=== PATIENT | male | born 1990 | race African-American/Black ===

== ENCOUNTER 2021-02-10 01:40 | Emergency (ER) | payer SELFPAY ==
[2021-02-10] MEDS ORDERED: ACETAMINOPHEN 500 MG TAB ONE (02:46)
--- NOTE | 2021-02-10 03:51 | ER ---
Nurse's Notes [facility] Name: Christo Pretty Age: 30 yrs Sex: Male : 1990 Arrival Date: 02/10/2021 Time: 01:43 Bed 3 Private MD: Diagnosis: Chest Wall Pain;Bronchitis Presentation: 02/10 01:59 Chief complaint: Patient states: right sided rib pain that has been there for 3 weeks, em reports mild productive brown cough, sore throat, shortness of breath, denies N/V/D or fever. Coronavirus screen: Client denies travel out of the [place] in the last 14 days. Ebola Screen: Patient negative for fever greater than or equal to 101.5 degrees Fahrenheit, and additional compatible Ebola Virus Disease symptoms Patient denies exposure to infectious person. Patient denies travel to an Ebola-affected area in the 21 days before illness onset. No symptoms or risks identified at this time. Initial Sepsis Screen: Does the patient meet any 2 criteria? No. Patient's initial sepsis screen is negative. Does the patient have a suspected source of infection? No. Patient's initial sepsis screen is negative. Risk Assessment: Do you want to hurt yourself or someone else? Patient reports no desire to harm self or others. Onset of symptoms was February 10, 2021. 01:59 Method Of Arrival: Ambulatory em 01:59 Acuity: RUDDY 3 em Historical: - Allergies: 02:02 No Known Allergies; em - PMHx: 02:02 Asthma; em - PSHx: 02:02 None; em - Immunization history:: Adult Immunizations not up to date. - Social history:: Smoking status: Patient denies any tobacco usage or history of. Patient uses street drugs, marijuana. Screenin:37 Abuse screen: Denies threats or abuse. Denies injuries from another. Nutritional rv screening: No deficits noted. Tuberculosis screening: No symptoms or risk factors identified. Fall Risk None identified. Assessment: 02:36 General: Appears comfortable, Behavior is calm, cooperative. Pain: Complains of pain in rv right lateral anterior chest. Neuro: Level of Consciousness is awake, alert, obeys commands, Oriented to person, place, time, situation. Cardiovascular: Patient's skin is warm and dry. Respiratory: Airway is patent Respiratory effort is even, unlabored, Breath sounds are clear bilaterally. Derm: Skin is intact. Vital Signs: 01:59 BP 137 / 92; Pulse 65; Resp 20; Temp 97.8; Pulse Ox 99% on R/A; Weight 90.72 kg; Height em 6 ft. 3 in. (190.50 cm); Pain 10/10; 01:59 Body Mass Index 25.00 (90.72 kg, 190.50 cm) em ED Course: 01:43 Patient arrived in ED. bp1 02:01 Triage completed. em 02:02 Arm band placed on. em 02:06 Diego Kasper MD is Attending Physician. [facility] 02:06 Francisco Obrien, RN is Primary Nurse. rv 02:37 Patient has correct armband on for positive identification. Pulse ox on. NIBP on. rv 03:01 Chest Pa And Lat (2 Views) XRAY In Process Unspecified. EDMS 03:05 Ribs Right XRAY In Process Unspecified. EDMS 03:56 No provider procedures requiring assistance completed. Patient did not have IV access rv during this emergency room visit. Administered Medications: 02:36 Drug: Tylenol 1000 mg Route: PO; rv 03:57 Follow up: Response: No adverse reaction rv Outcome: 03:50 Discharge ordered by . [facility] 03:56 Discharged to home ambulatory. rv 03:56 Condition: good 03:56 Discharge instructions given to patient, Instructed on discharge instructions, follow up and referral plans. medication usage, Demonstrated understanding of instructions, follow-up care, medications, Prescriptions given X 3. 03:57 Patient left the ED. rv Signatures: Dispatcher [employer] Roque Nunes, HUDSON TREVIÑO Francisco Obrien, RN RN [facility] Diego Kasper MD MD [facility]
--- NOTE | 2021-02-10 03:51 | EDPHYS ---
Physician Documentation [facility] Name: Christo Pretty Age: 30 yrs Sex: Male : 1990 Arrival Date: 02/10/2021 Time: 01:43 Bed 3 Private MD: ED Physician Diego Kasper HPI: 02/10 02:23 This 30 yrs old Black Male presents to ER via Ambulatory with complaints of Side Pain. mh7 02:23 The patient or guardian reports cough, that is intermittent, with productive sputum, mh7 brownish. Onset: The symptoms/episode began/occurred 3 week(s) ago. Severity of symptoms: At their worst the symptoms were moderate, 7 day(s) ago, in the emergency department the symptoms are unchanged. Modifying factors: The symptoms are alleviated by nothing, the symptoms are aggravated by nothing. Associated signs and symptoms: Pertinent positives: right lower rib pain, worse with coughing, Pertinent negatives: chest pain, diarrhea, ear ache, fever, nausea, rhinorrhea, sore throat, vomiting. Historical: - Allergies: 02:02 No Known Allergies; em - PMHx: 02:02 Asthma; em - PSHx: 02:02 None; em - Immunization history:: Adult Immunizations not up to date. - Social history:: Smoking status: Patient denies any tobacco usage or history of. Patient uses street drugs, marijuana. ROS: 02:23 Constitutional: Negative for fever, chills, and weight loss, Eyes: Negative for injury, mh7 pain, redness, and discharge, ENT: Negative for injury, pain, and discharge, Neck: Negative for injury, pain, and swelling. 02:23 Abdomen/GI: Negative for abdominal pain, nausea, vomiting, diarrhea, and constipation, Back: Negative for injury and pain, : Negative for injury, bleeding, discharge, and swelling, MS/Extremity: Negative for injury and deformity, Skin: Negative for injury, rash, and discoloration, Neuro: Negative for headache, weakness, numbness, tingling, and seizure, Psych: Negative for depression, anxiety, suicide ideation, homicidal ideation, and hallucinations, Allergy/Immunology: Negative for hives, rash, and allergies, Endocrine: Negative for neck swelling, polydipsia, polyuria, polyphagia, and marked weight changes, Hematologic/Lymphatic: Negative for swollen nodes, abnormal bleeding, and unusual bruising. 02:23 Cardiovascular: Negative for edema, orthopnea, palpitations, paroxysmal nocturnal dyspnea, acute changes. Exam: 02:27 Constitutional: This is a well developed, well nourished patient who is awake, alert, mh7 and in no acute distress. Head/Face: Normocephalic, atraumatic. Eyes: Pupils equal round and reactive to light, extra-ocular motions intact. Lids and lashes normal. Conjunctiva and sclera are non-icteric and not injected. Cornea within normal limits. Periorbital areas with no swelling, redness, or edema. Neck: Trachea midline, no thyromegaly or masses palpated, and no cervical lymphadenopathy. Supple, full range of motion without nuchal rigidity, or vertebral point tenderness. No Meningismus. 02:27 Cardiovascular: Regular rate and rhythm with a normal S1 and S2. No gallops, murmurs, or rubs. Normal PMI, no JVD. No pulse deficits. Respiratory: Lungs have equal breath sounds bilaterally, clear to auscultation and percussion. No rales, rhonchi or wheezes noted. No increased work of breathing, no retractions or nasal flaring. Abdomen/GI: Soft, non-tender, with normal bowel sounds. No distension or tympany. No guarding or rebound. No evidence of tenderness throughout. Back: No spinal tenderness. No costovertebral tenderness. Full range of motion. Skin: Warm, dry with normal turgor. Normal color with no rashes, no lesions, and no evidence of cellulitis. MS/ Extremity: Pulses equal, no cyanosis. Neurovascular intact. Full, normal range of motion. Neuro: Awake and alert, GCS 15, oriented to person, place, time, and situation. Cranial nerves II-XII grossly intact. Motor strength 5/5 in all extremities. Sensory grossly intact. Cerebellar exam normal. Normal gait. Psych: Awake, alert, with orientation to person, place and time. Behavior, mood, and affect are within normal limits. 02:27 Chest/axilla: Inspection: normal, Palpation: tenderness, that is moderate, of the right lower lateral chest, that totally reproduces the patient's complaints, Axilla: are normal, Lymph nodes: lymphadenopathy is not appreciated. Vital Signs: 01:59 BP 137 / 92; Pulse 65; Resp 20; Temp 97.8; Pulse Ox 99% on R/A; Weight 90.72 kg; Height em 6 ft. 3 in. (190.50 cm); Pain 10/10; 01:59 Body Mass Index 25.00 (90.72 kg, 190.50 cm) em MDM: 03:48 Differential Diagnosis: Obstructed Airway Bronchitis Influenza Upper Respiratory 7 Infection Viral Syndrome Pneumonia. Data reviewed: vital signs, nurses notes, EKG, radiologic studies, plain films. Data interpreted: Pulse oximetry: on room air is 99 %. Interpretation: normal. Counseling: I had a detailed discussion with the patient and/or guardian regarding: the historical points, exam findings, and any diagnostic results supporting the discharge/admit diagnosis, the presence of at least one elevated blood pressure reading (>120/80) during this emergency department visit, radiology results, the need for outpatient follow up. Response to treatment: the patient's symptoms have resolved after treatment, the patient's blood pressure is in an acceptable range, mental status has returned to baseline, the patient no longer shows bradycardia, the patient is not short of breath, the patient is not tachycardic, the patient's pain is gone, the patient's temperature has normalized. 03:50 Patient medically screened. [facility] 02/10 02:22 Order name: Ribs Right XRAY [facility] 02/10 02:22 Order name: Chest Pa And Lat (2 Views) XRAY [facility] 02/10 02:22 Order name: EKG - Nurse/Tech; Complete Time: 02:36 [facility] Administered Medications: 02:36 Drug: Tylenol 1000 mg Route: PO; rv 03:57 Follow up: Response: No adverse reaction rv Disposition: 02/10/21 03:50 Discharged to Home. Impression: Chest Wall Pain, Bronchitis. - Condition is Stable. - Discharge Instructions: Chest Wall Pain, [id number], Acute Bronchitis, [id number]. - Prescriptions for Ibuprofen 800 mg Oral Tablet - take 1 tablet by ORAL route every 8 hours As needed take with food; 15 tablet. Tessalon Perles 100 mg Oral Capsule - take 1 capsule by ORAL route every 8 hours As needed; 15 capsule. Albuterol Sulfate 90 mcg/actuation - inhale 1-2 puff by INHALATION route every 4-6 hours; 1 Inhaler. - Medication Reconciliation Form, Thank You Letter, Antibiotic Education, Prescription Opioid Use form. - Follow up: Private Physician; When: 1 - 2 days; Reason: Worsening of condition, Recheck today's complaints, Continuance of care, Re-evaluation by your physician. - Problem is an ongoing problem. - Symptoms have improved. Signatures: Dispatcher [employer] EDRoque Waterman RN RN em Francisco Obrien RN RN rv Holmes, Maurice, MD MD mh7 Corrections: (The following items were deleted from the chart) 03:57 03:50 02/10/2021 03:50 Discharged to Home. Impression: Chest Wall Pain; Bronchitis. rv Condition is Stable. Forms are Medication Reconciliation Form, Thank You Letter, Antibiotic Education, Prescription Opioid Use. Follow up: Private Physician; When: 1 - 2 days; Reason: Worsening of condition, Recheck today's complaints, Continuance of care, Re-evaluation by your physician. Problem is an ongoing problem. Symptoms have improved. mh7
[2021-02-10 04:01] VITALS: BP 137/92; TEMP 97.8; O2SAT 99
--- NOTE | 2021-02-11 09:53 | RAD REPORT ---
EXAM DESCRIPTION: RAD - Ribs Right - 02/10/2021 3:05 am CLINICAL HISTORY: 30 years, Male, PAIN COMPARISON: None. FINDINGS: Four X-ray views of the right ribs were performed. No prior films are available at this ti ny for comparison. The cardiomediastinal silhouette demonstrate to be unremarkable. Heart is not enlarged. The thoraci c aorta is unremarkable. Costophrenic angles are sharp. Evaluation of the lungs demonstrate no evidence for pneumothorax. The right ribs demonstrate to be in tact with no evidence for significant cortical breakthrough that will suggest fracture. There is no e vidence for pleural effusion and/or abnormal areas of airspace opacity that will suggest lung contusi on. The rest of the visualized portions of the soft tissue and bony structures demonstrate to be unre markable. IMPRESSION: No evidence for pneumothorax. No evidence of right rib fracture seen. Electronically signed by: Liban Rivera MD 02/10/2021 3:12 AM CDT Due to temporary technical issues with the PACS/Fluency reporting system, reports are being signed by the in house radiologist without review as a courtesy to ensure prompt reporting. The interpreting r adiologist is fully responsible for the content of the report.
--- NOTE | 2021-02-11 10:08 | RAD REPORT ---
EXAM DESCRIPTION: Josét Pa And Lat (2 Views)02/10/2021 3:01 am COMPARISON: None. CLINICAL HISTORY: [facility] Productive cough;Rib Pain - Right FINDINGS: PA and lateral views of the chest demonstrate(s) a normal cardiomediastinal silhouette. No pneumothorax or pleural effusion. No consolidation or pulmonary edema. Osseous structures are intact . IMPRESSION: No acute chest process. Electronically signed by: Elder Layton MD 02/10/2021 3:05 AM CDT Due to temporary technical issues with the PACS/Fluency reporting system, reports are being signed by the in house radiologist without review as a courtesy to ensure prompt reporting. The interpreting r adiologist is fully responsible for the content of the report.
== END 2021-02-10 03:57 | disposition home or self-care (01) ==
LOC: ER 01:40
DX: J40 Bronchitis, not specified as acute or chronic (principal)
CPT/HCPCS: 71046; 93005; 99284

== ENCOUNTER 2021-07-15 02:34 | Emergency (ER) | payer SELFPAY ==
[2021-07-15] MEDS ORDERED: ACETAMINOPHEN 500 MG TAB ONE (03:20)
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
[2021-07-15 05:18] VITALS: BP 125/80; TEMP 98.6; O2SAT 98
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
== END 2021-07-15 05:05 | disposition home or self-care (01) ==
LOC: ER 02:34
DX: S16.1XXA Strain of muscle, fascia and tendon at neck level, initial encounter (principal); S30.0XXA Contusion of lower back and pelvis, initial encounter; W18.39XA Other fall on same level, initial encounter; Y93.89 Activity, other specified; J45.909 Unspecified asthma, uncomplicated; F17.210 Nicotine dependence, cigarettes, uncomplicated
CPT/HCPCS: 70450; 72125; 72128; 72131; 99284

== ENCOUNTER 2021-12-11 09:11 | Emergency (ER) | payer SELFPAY ==
--- OUTSIDE RECORDS SUMMARY | 2021-12-11 09:14 | XMS REPORT | Continuity of Care Document ---
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 SPINE WO CONTRAST, CT TRAUMA CERVICAL SPINE WO CONTRASTHISTORY: Polytrauma, critical, head/C-spine injury suspected CT TRAUMAPANEL (ASSAULT WITH LOSS OF CONSCIOUSNESS)COMPARISON: NoneTECHNIQUE: CT imaging of the head, cervical, thoracic, and lumbar spinewas obtained without IV contrast. Coronal and sagittal reformats wereconstructed.FINDINGS: HEAD:Exam is limited by patient's motion. Redundancy identified in the leftparietal extra-axial space (series #2 image 24 is likely artifactual orrelated to dural calcification no overlying scalp swelling or cranialfracture seen.The ventricles and cerebral sulci are normal in caliber and configuration.No hydrocephalus, midline shift, or significant mass effect is detected.The basal cisterns are intact.No acute intracranial hemorrhage or pathological extra-axial fluidcollection is demonstrated. No parenchymal attenuation abnormality isidentified. The diaz-white matter differentiation is preserved.The mastoid air cells and paranasal air sinuses are clear. The calvariumand remaining skull base are unremarkable.CERVICAL SPINE:There is reversal of the normal cervical lordosis. The vertebral bodies arein normal height and alignment. The intervertebral disc spaces arepreserved. The craniocervical junction is intact. The prevertebral softtissues are unremarkable.THORACIC SPINE:The vertebral bodies are in normal height and alignment. The intervertebraldisc spaces are preserved. No facet fracture or dislocation is present.LUMBAR SPINE:The vertebral bodies are in normal height and alignment. The intervertebraldisc spaces are preserved. No facet fracture or dislocation is present.IMPRESSIONNo acute intracranial abnormality.No cervical, thoracic or lumbar fracture or subluxation.Preliminary Report Dictated by Resident: Ney Fermin MD., have reviewed this study and agree with theabove report. CT TRAUMA 2021-02- No acute intracranial Un iversity of THORACIC SPINE 04 abnormality. No cervical, [facility] WO CONTRAST 13:33:31 thoracic or lumbar Branc h fracture or subluxation. Preliminary Report Dictated by Resident: Ney Ye MD., have reviewed this study and agree with theabove report.EXAM: CT TRAUMA HEAD WO CONTRAST, CT TRAUMA THORACIC SPINE WO CONTRAST, CTTRAUMA LUMBAR SPINE WO CONTRAST, CT TRAUMA CERVICAL SPINE WO CONTRAST HISTORY: Polytrauma, critical, head/C-spine injury suspected CT TRAUMAPANEL (ASSAULT WITH LOSS OF CONSCIOUSNESS) COMPARISON: None TECHNIQUE: ?CT imaging of the head, cervical, thoracic, and lumbar spinewas obtained without IV contrast. Coronal and sagittal reformats wereconstructed. FINDINGS: HEAD: Exam is limited by patient's motion. Redundancy identified in the leftparietal extra-axial space (series #2 image 24 is likely artifactual orrelated to dural calcification no overlying scalp swelling or cranialfracture seen. The ventricles and cerebral sulci are normal in caliber and configuration.No hydrocephalus, midline shift, or significant mass effect is detected.The basal cisterns are intact. No acute intracranial hemorrhage or pathological extra-axial fluidcollection is demonstrated. No parenchymal attenuation abnormality isidentified. The diaz-white matter differentiation is preserved. The mastoid air cells and paranasal air sinuses are clear. The calvariumand remaining skull base are unremarkable. CERVICAL SPINE: There is reversal of the normal cervical lordosis. The vertebral bodies arein normal height and alignment. The intervertebral disc spaces arepreserved. The craniocervical junction is intact. The prevertebral softtissues are unremarkable. THORACIC SPINE: The vertebral bodies are in normal height and alignment. The intervertebraldisc spaces are preserved. No facet fracture or dislocation is present. LUMBAR SPINE: The vertebral bodies are in normal height and alignment. The intervertebraldisc spaces are preserved. No facet fracture or dislocation is present. [facility], Radiant Results Inft User - 02/26/2021 8:34 AM CDTEXAM: CT TRAUMA HEAD WO CONTRAST, CT TRAUMA THORACIC SPINE WO CONTRAST, CTTRAUMA LUMBAR SPINE WO CONTRAST, CT TRAUMA CERVICAL SPINE WO CONTRASTHISTORY: Polytrauma, critical, head/C-spine injury suspected CT TRAUMAPANEL (ASSAULT WITH LOSS OF CONSCIOUSNESS)COMPARISON: NoneTECHNIQUE: CT imaging of the head, cervical, thoracic, and lumbar spinewas obtained without IV contrast. Coronal and sagittal reformats wereconstructed.FINDINGS: HEAD:Exam is limited by patient's motion. Redundancy identified in the leftparietal extra-axial space (series #2 image 24 is likely artifactual orrelated to dural calcification no overlying scalp swelling or cranialfracture seen.The ventricles and cerebral sulci are normal in caliber and configuration.No hydrocephalus, midline shift, or significant mass effect is detected.The basal cisterns are intact.No acute intracranial hemorrhage or pathological extra-axial fluidcollection is demonstrated. No parenchymal attenuation abnormality isidentified. The diaz-white matter differentiation is preserved.The mastoid air cells and paranasal air sinuses are clear. The calvariumand remaining skull base are unremarkable.CERVICAL SPINE:There is reversal of the normal cervical lordosis. The vertebral bodies arein normal height and alignment. The intervertebral disc spaces arepreserved. The craniocervical junction is intact. The prevertebral softtissues are unremarkable.THORACIC SPINE:The vertebral bodies are in normal height and alignment. The intervertebraldisc spaces are preserved. No facet fracture or dislocation is present.LUMBAR SPINE:The vertebral bodies are in normal height and alignment. The intervertebraldisc spaces are preserved. No facet fracture or dislocation is present.IMPRESSIONNo acute intracranial abnormality.No cervical, thoracic or lumbar fracture or subluxation.Preliminary Report Dictated by Resident: Ney Fermin MD., have reviewed this study and agree with theabove report. CT TRAUMA 2021-02- No acute intracranial Un iversity of LUMBAR SPINE WO 04 abnormality. No cervical, [facility] CONTRAST 13:33:31 thoracic or lumbar Branch fracture or subluxation. Preliminary Report Dictated by Resident: Ney Ye MD., have reviewed this study and agree with theabove report.EXAM: CT TRAUMA HEAD WO CONTRAST, CT TRAUMA THORACIC SPINE WO CONTRAST, CTTRAUMA LUMBAR SPINE WO CONTRAST, CT TRAUMA CERVICAL SPINE WO CONTRAST HISTORY: Polytrauma, critical, head/C-spine injury suspected CT TRAUMAPANEL (ASSAULT WITH LOSS OF CONSCIOUSNESS) COMPARISON: None TECHNIQUE: ?CT imaging of the head, cervical, thoracic, and lumbar spinewas obtained without IV contrast. Coronal and sagittal reformats wereconstructed. FINDINGS: HEAD: Exam is limited by patient's motion. Redundancy identified in the leftparietal extra-axial space (series #2 image 24 is likely artifactual orrelated to dural calcification no overlying scalp swelling or cranialfracture seen. The ventricles and cerebral sulci are normal in caliber and configuration.No hydrocephalus, midline shift, or significant mass effect is detected.The basal cisterns are intact. No acute intracranial hemorrhage or pathological extra-axial fluidcollection is demonstrated. No parenchymal attenuation abnormality isidentified. The diaz-white matter differentiation is preserved. The mastoid air cells and paranasal air sinuses are clear. The calvariumand remaining skull base are unremarkable. CERVICAL SPINE: There is reversal of the normal cervical lordosis. The vertebral bodies arein normal height and alignment. The intervertebral disc spaces arepreserved. The craniocervical junction is intact. The prevertebral softtissues are unremarkable. THORACIC SPINE: The vertebral bodies are in normal height and alignment. The intervertebraldisc spaces are preserved. No facet fracture or dislocation is present. LUMBAR SPINE: The vertebral bodies are in normal height and alignment. The intervertebraldisc spaces are preserved. No facet fracture or dislocation is present. [facility], Radiant Results Inft User - 02/26/2021 8:34 AM CDTEXAM: CT TRAUMA HEAD WO CONTRAST, CT TRAUMA THORACIC SPINE WO CONTRAST, CTTRAUMA LUMBAR SPINE WO CONTRAST, CT TRAUMA CERVICAL SPINE WO CONTRASTHISTORY: Polytrauma, critical, head/C-spine injury suspected CT TRAUMAPANEL (ASSAULT WITH LOSS OF CONSCIOUSNESS)COMPARISON: NoneTECHNIQUE: CT imaging of the head, cervical, thoracic, and lumbar spinewas obtained without IV contrast. Coronal and sagittal reformats wereconstructed.FINDINGS: HEAD:Exam is limited by patient's motion. Redundancy identified in the leftparietal extra-axial space (series #2 image 24 is likely artifactual orrelated to dural calcification no overlying scalp swelling or cranialfracture seen.The ventricles and cerebral sulci are normal in caliber and configuration.No hydrocephalus, midline shift, or significant mass effect is detected.The basal cisterns are intact.No acute intracranial hemorrhage or pathological extra-axial fluidcollection is demonstrated. No parenchymal attenuation abnormality isidentified. The diaz-white matter differentiation is preserved.The mastoid air cells and paranasal air sinuses are clear. The calvariumand remaining skull base are unremarkable.CERVICAL SPINE:There is reversal of the normal cervical lordosis. The vertebral bodies arein normal height and alignment. The intervertebral disc spaces arepreserved. The craniocervical junction is intact. The prevertebral softtissues are unremarkable.THORACIC SPINE:The vertebral bodies are in normal height and alignment. The intervertebraldisc spaces are preserved. No facet fracture or dislocation is present.LUMBAR SPINE:The vertebral bodies are in normal height and alignment. The intervertebraldisc spaces are preserved. No facet fracture or dislocation is present.IMPRESSIONNo acute intracranial abnormality.No cervical, thoracic or lumbar fracture or subluxation.Preliminary Report Dictated by Resident: Ney Fermin MD., have reviewed this study and agree with theabove report. Type and Screen - ONCE STAT 2021-02-26 09:36:12 Test Item Value Reference Range Interpretation Comme nts ABO & RH (test code = 20) A Positive Pe rformed at [facility] [address] [address]Toll Free: [phone] A No. [id number] IAT (test code = 1185) Negative Perfo rmed at [facility] Blood [address] [address]Toll Free: [phone] A No. [id number] [facility] [id number] 09:28:39 Test Item Value Reference Range Interpretation Comments ABO & RH (test code A Positive Performe d at [facility] = 20) Laboratory [facility] [address] [address]Toll Free: [phone] A No. [id number] [facility] METABOLIC PANEL (35510)2021-02-26 09:28:36 Test Item Value Reference Range Interpretation Comments NA (test code = 139 mmol/L 135-145 4124300535) K (test code = 3.5 mmol/L 3.5-5.0 3752382819) CL (test code = 104 mmol/L 98-108 5885504069) CO2 TOTAL (test code 27 mmol/L 23-31 = 5784818588) AGAP (test code = 2-16 9601605967) BUN (test code = 17 mg/dL 7-23 4546521415) GLUCOSE (test code = 109 mg/dL 70-110 4569928244) CREATININE (test code 0.69 mg/dL 0.60-1.25 = 8943538995) TOTAL BILI (test code 0.5 mg/dL 0.1-1.1 = 9838161488) CALCIUM (test code = 9.4 mg/dL 8.6-10.6 5324160472) T PROTEIN (test code 7.7 g/dL 6.3-8.2 = 1991097937) ALBUMIN (test code = 4.6 g/dL 3.5-5.0 1885830657) ALK PHOS (test code = 57 U/L 34-122 2828231981) ALTv (test code = 16 U/L 5-50 1742-6) AST(SGOT) (test code 29 U/L 13-40 = 7391577733) eGFR (test code = mL/min/1.73m2 2550107428) SCOTTIE (test code = SCOTTIE) Association of Glomerular Filtration Rate (GFR) and Staging of Kidney Disease* + + +- +| GFR (mL/min/1.73 m2) ?| With Kidney Damage ?| ?Without Kidney Damage+ ------+ ----+ ------+| ?>90 ?| ?Stage one ?| ? Normal ?+ -+ + -+| ?60-89 ?| ?Stage two ?| ? Decreased GFR ? + + +- +| ?30-59 ?| ?Stage three ?| ? Stage three ? + + +- +| ?15-29 ?| ?Stage four ? | ? Stage four ?+ -+ + -+| ?<15 (or dialysis) ? ?| ?Stage five ? | ? Stage five ?+ -+ + -+ *Each stage assumes the associated GFR level has been in effect for at least three months. ?Stages 1 to 5, with or without kidney disease, indicate chronic kidney disease. Notes: Determination of stages one and two (with eGFR >59mL/min/1.73 m2) requires estimation of kidney damage for at least three months as defined by structural or functional abnormalities of the kidney, manifested by either:Pathological abnormalities or Markers of kidney damage (including abnormalities in the composition of the blood or urine or abnormalities in imaging tests). [facility] Test Item Value Reference Range Interpretation Comments LIPASE (test code = 3683517997) 53 U/L 0-220 Lab Interpretation (test code = Normal 16610-0) [facility] (ID NOW RAPID TESTING)2021-02-26 09:18:35 Test Item Value Reference Range Interpretation Comments SARS-CoV-2 Rapid ID NOW Not Detected Not Detected (test code = 39204-2) SCOTTIE (test code = SCOTTIE) ID NOW COVID-19 Assay is an isothermal nucleic acid amplification test intended for the qualitative detection of nucleic acid from SARS-CoV-2 viral RNA in nasopharyngeal (WILDLIFE MANAGER) specimens. It is used under Emergency Use Authorization (EUA) by FDA. The limit of detection (LOD) of the assay is 125 Genome Equivalents/mL. A positive result is indicative of the presence of SARS-CoV-2 RNA. ?Clinical correlation with patient history and other diagnostic information is necessary to determine patient infection status. A negative (Not Detected) result does not preclude SARS-CoV-2 infection. In patients with clinical symptoms and other tests that are consistent with SARS-CoV-2 infection, negative results should be treated as presumptive negative and a new specimen should be tested with alternative PCR molecular test. Invalid: Please collect a new specimen for repeat patient testing if clinically indicated. Lab Interpretation Normal (test code = 11328-9) [facility] WITH [id number] 09:02:32 Test Item Value Reference Range Interpretation Comments WBC (test code = See_Comment [Automated 7696-2) message] The sy stem which generated this result transmitted reference range : 4.20 - 10.70 10*3/?L. The reference range was not used to interpret this result as normal/abnormal . RBC (test code = See_Comment [Automated 697-8) message] The sy stem which generated this result transmitted reference range : 4.26 - 5.52 10*6/?L. The reference range was not used to interpret this result as normal/abnormal . HGB (test code = 14.1 g/dL 12.2-16.4 718-7) HCT (test code = 43.0 % 38.4-49.3 4544-3) MCV (test code = 95.1 fL 81.7-95.6 787-2) MCH (test code = 31.2 pg 26.1-32.7 785-6) MCHC (test code = 32.8 g/dL 31.2-35.0 786-4) RDW-SD (test code = 39.7 fL 38.5-51.6 01783-4) RDW-CV (test code = 11.4 % 12.1-15.4 L 788-0) PLT (test code = See_Comment [Automated 777-3) message] The sy stem which generated this result transmitted reference range : 150 - 328 10*3/ ?L. The reference r bryce was not used to interpret this result as normal/abnormal . MPV (test code = 9.3 fL 9.8-13.0 L 17812-9) NRBC/100 WBC (test See_Comment [Automat ed code = 6327762902) message] The system which generated this result transmitted reference range : 0.0 - 10.0 /100 WBCs. The refer ence range was not u sed to interpret th is result as normal/abnormal . NRBC x10^3 (test code <0.01 See_Comment [Auto mated = 6361956573) message] The s ystem which generated this result transmitted reference range : 10*3/?L. The reference range was not used to interpret this result as normal/abnormal . GRAN MAT (NEUT) % 60.7 % (test code = 770-8) IMM GRAN % (test code 0.20 % = 6620180124) LYMPH % (test code = 28.5 % 736-9) MONO % (test code = 8.5 % 5905-5) EOS % (test code = 1.8 % 713-8) BASO % (test code = 0.3 % 706-2) GRAN MAT x10^3(ANC) 3.71 10*3/uL 1.99-6.95 (test code = 7704228451) IMM GRAN x10^3 (test <0.03 0.00-0.06 code = 0020146806) LYMPH x10^3 (test code 1.74 10*3/uL 1.09-3.23 = 731-0) MONO x10^3 (test code 0.52 10*3/uL 0.36-1.02 = 742-7) EOS x10^3 (test code = 0.11 10*3/uL 0.06-0.53 711-2) BASO x10^3 (test code <0.03 0.01-0.09 = 704-7) Lab Interpretation Abnormal (test code = 26970-0) [facility]"
[2021-12-11] MEDS ORDERED: ONDANSETRON 4 MG/2 ML VIAL ONE (09:21)
[2021-12-11] MEDS ORDERED: NA CHLORIDE 0.9% 1,000 ML ONE (09:22)
[2021-12-11] MEDS ORDERED: FAMOTIDINE 20 MG/2 ML VIAL IV ONE (09:22)
[2021-12-11] MEDS ORDERED: KETOROLAC 30 MG/ML INJ ONE (09:22)
[2021-12-11 09:41] LABS: Absolute Lymphocytes (CBC) 1.3 K/uL (0.7-4.9); Hematocrit 44.8 % (39.6-49.0); Lymphocytes % 29.4 % (15.3-44.8); MPV 7.5 fL (7.6-11.3); RBC Red Blood Cell Count 4.63 M/uL (4.33-5.43)
[2021-12-11 10:00] LABS: ALT/SGPT 18 U/L (12-78); AST/SGOT 11 U/L (15-37); Albumin 3.9 g/dL (3.4-5.0); Alkaline Phosphatase 51 U/L (45-117); BUN Blood Urea Nitrogen 18 mg/dL (7-18); Bicarbonate 30 mmol/L (21-32); Bilirubin Direct < 0.1 mg/dL (0-0.2); Bilirubin Total 0.4 mg/dL (0.2-1.0); Glucose Level 97 mg/dL (74-106); Magnesium 1.9 mg/dL (1.8-2.4); NT PRO-BNP 8 pg/mL (<125); Potassium 3.8 mmol/L (3.5-5.1); Sodium Level 138 mmol/L (136-145)
[2021-12-11 10:03] LABS: Protime INR 1.06
--- NOTE | 2021-12-11 11:02 | RAD REPORT ---
EXAM DESCRIPTION: Alessia Single View12/11/2021 10:00 am CLINICAL HISTORY: Chest pain COMPARISON: 2020 FINDINGS: The lungs appear clear of acute infiltrate. The heart is normal size IMPRESSION: No acute abnormalities displayed
[2021-12-11 11:51] LABS: Urine Blood Negative (Negative); Urine Glucose Negative (Negative); Urine Protein Negative (Negative); Urine Specific Gravity >=1.030 (1.005-1.030); Urine pH 6.5 (5.0-7.0)
--- NOTE | 2021-12-11 12:07 | ER ---
Nurse's Notes [facility] Name: Christo Pretty Age: 31 yrs Sex: Male : 1990 Arrival Date: 12/11/2021 Time: 09:12 Bed 16 Private MD: Diagnosis: Chest pain, unspecified;Nausea with vomiting, unspecified Presentation: 12/11 09:12 Chief complaint: Patient states: CP and N/V for 1 day. No fever. Coronavirus screen: ll1 Client denies travel out of the [place] in the last 14 days. At this time, the client does not indicate any symptoms associated with coronavirus-19. Ebola Screen: Patient denies travel to an Ebola-affected area in the 21 days before illness onset. Initial Sepsis Screen: Does the patient meet any 2 criteria? No. Patient's initial sepsis screen is negative. Does the patient have a suspected source of infection? No. Patient's initial sepsis screen is negative. Risk Assessment: Do you want to hurt yourself or someone else? Patient reports no desire to harm self or others. Onset of symptoms was December 11, 2021. 09:12 Method Of Arrival: EMS ll1 09:12 Acuity: RUDDY 3 ll1 09:14 Chief complaint: EMS states: VSS, fingerstick 90, aspirin 324mg PO given en route. 18 G ll1 L AC. Triage Assessment: 09:14 General: Appears uncomfortable, Behavior is calm, cooperative, appropriate for age. ll1 Pain: Complains of pain in chest Quality of pain is described as burning, aching. Cardiovascular: Reports chest pain. GI: Abdomen is flat, Reports nausea, vomiting. Historical: - Allergies: 09:13 No Known Drug Allergies; ll1 - PMHx: 09:13 Asthma; ll1 - PSHx: 09:13 None; ll1 - Immunization history:: Client reports having NOT received the Covid vaccine. - Social history:: Smoking status: Patient denies any tobacco usage or history of. Patient uses street drugs, marijuana. Screenin:14 Abuse screen: Denies threats or abuse. Nutritional screening: No deficits noted. ll1 Tuberculosis screening: No symptoms or risk factors identified. Fall Risk IV access (20 points). Total Villafana Fall Scale indicates No Risk (0-24 pts). Assessment: 10:15 Reassessment: No changes from previously documented assessment. Patient and/or family ll1 updated on plan of care and expected duration. Pain level reassessed. Patient is alert, oriented x 3, equal unlabored respirations, skin warm/dry/pink. Patient states feeling better. 11:15 Reassessment: No changes from previously documented assessment. Patient and/or family ll1 updated on plan of care and expected duration. Pain level reassessed. Patient is alert, oriented x 3, equal unlabored respirations, skin warm/dry/pink. Patient states symptoms have improved. Pain: Denies pain. Pain does not radiate. Pain began 1 day ago. 12:12 Reassessment: No changes from previously documented assessment. Patient and/or family ll1 updated on plan of care and expected duration. Pain level reassessed. Patient is alert, oriented x 3, equal unlabored respirations, skin warm/dry/pink. Patient states feeling better. Vital Signs: 09:33 BP 133 / 94; Pulse 65; Resp 17; Temp 98.2; Pulse Ox 95% on R/A; Weight 95.25 kg; Height ll1 6 ft. 3 in. (190.50 cm); Pain 6/10; 10:25 BP 130 / 94; Pulse 60; Resp 16; Pulse Ox 96% ; ll1 11:55 BP 132 / 91; Pulse 60; Resp 15; Pulse Ox 100% ; Pain 0/10; ll1 09:33 Body Mass Index 26.25 (95.25 kg, 190.50 cm) ll1 ED Course: 09:12 Patient arrived in ED. ll1 09:13 Triage completed. ll1 09:13 Arm band placed on Patient placed in an exam room, on a stretcher. ll1 09:14 Ruddy Hood PA is PHCP. cp 09:14 Morgan Downs MD is Attending Physician. cp 09:14 Kaye Mckenzie RN is Primary Nurse. ll1 09:14 Patient has correct armband on for positive identification. Bed in low position. Call ll1 light in reach. Side rails up X2. laboratory monitor on. Pulse ox on. NIBP on. 09:14 No provider procedures requiring assistance completed. Maintain EMS IV. Dressing ll1 intact. Good blood return noted. Site clean \T\ dry. Gauge \T\ site: 18 G L AC. Patient maintains SpO2 saturation greater than 95% on room air. 09:30 First set of blood cultures drawn by me. kv1 09:35 Basic Metabolic Panel Sent. kv1 09:35 CBC with Automated Diff Sent. kv1 09:35 Liver (Hepatic) Function Sent. kv1 09:36 EKG done, by optical lab technician. kv1 10:00 XRAY Chest (1 view) In Process Unspecified. EDMS 12:12 IV discontinued, intact, bleeding controlled, No redness/swelling at site. Pressure ll1 dressing applied. Administered Medications: 09:32 Drug: Pepcid (famotidine) 20 mg Route: IVP; Site: left antecubital; ll1 10:25 Follow up: Response: No adverse reaction ll1 09:32 Drug: Ketorolac 30 mg Route: IVP; Site: left antecubital; ll1 10:25 Follow up: Response: No adverse reaction ll1 09:32 Drug: NS 0.9% 1000 ml Route: IV; Rate: 1000 ml/hr; Site: left antecubital; ll1 11:52 Follow up: Response: No adverse reaction; IV Status: Completed infusion; IV Intake: ll1 1000ml 09:33 Drug: Zofran (Ondansetron) 4 mg Route: IVP; Site: left antecubital; ll1 10:24 Follow up: Response: No adverse reaction ll1 Intake: 11:52 IV: 1000ml; Total: 1000ml. ll1 Outcome: 12:07 Discharge ordered by . cp 12:12 Discharged to home ambulatory. ll1 12:12 Condition: stable 12:12 Discharge instructions given to patient, police, Instructed on discharge instructions, follow up and referral plans. medication usage, Demonstrated understanding of instructions, follow-up care, medications, Prescriptions given X 2. 12:13 Patient left the ED. ll1 Signatures: Dispatcher [employer] EDMS Ruddy Hood PA PA cp Lewis, Lynsay, RN RN ll1 Enzo Erazo kv1
--- NOTE | 2021-12-11 12:07 | EDPHYS ---
Physician Documentation [facility] Name: Christo Pretty Age: 31 yrs Sex: Male : 1990 Arrival Date: 12/11/2021 Time: 09:12 Bed 16 Private MD: ED Physician Morgan Downs HPI: 12/11 09:20 This 31 yrs old Black Male presents to ER via EMS with complaints of Chest Pain. cp 09:20 The patient or guardian reports chest pain that is located primarily in the substernal cp area. 09:20 The pain does not radiate. Associated signs and symptoms: Pertinent positives: nausea, cp 1 episode of vomiting. 09:20 The chest pain is described as aching, burning. cp 09:20 Duration: The patient or guardian reports a single episode, that is still ongoing. cp Patient reports chest pain started after vomiting this morning. Patient admits to use of marijuana and denies use of any other illegal drugs. Historical: - Allergies: 09:13 No Known Drug Allergies; ll1 - PMHx: 09:13 Asthma; ll1 - PSHx: 09:13 None; ll1 - Immunization history:: Client reports having NOT received the Covid vaccine. - Social history:: Smoking status: Patient denies any tobacco usage or history of. Patient uses street drugs, marijuana. ROS: 09:25 Cardiovascular: Positive for chest pain. cp 09:25 Constitutional: Negative for fever. cp 09:25 Abdomen/GI: Positive for vomiting, Negative for abdominal pain. 09:25 Respiratory: Negative for cough, shortness of breath, wheezing. cp 09:25 Eyes: Negative for injury, pain, redness, and discharge. cp 09:25 Neck: Negative for pain with movement, pain at rest, stiffness. 09:25 Back: Negative for pain at rest, pain with movement. 09:25 Neuro: Negative for altered mental status, dizziness, headache, syncope, weakness. 09:25 All other systems are negative. Exam: 09:25 ECG was reviewed by the Attending Physician. cp 09:30 Constitutional: The patient appears in no acute distress, alert, awake, cp non-diaphoretic, non-toxic, well developed, well nourished, uncomfortable. 09:30 Head/Face: Normocephalic, atraumatic. cp 09:30 Eyes: Periorbital structures: appear normal, Conjunctiva: normal, no exudate, no injection, Sclera: no appreciated abnormality, Lids and lashes: appear normal, bilaterally. 09:30 ENT: External ear(s): are unremarkable, Nose: is normal, Mouth: Lips: moist, Oral mucosa: moist, Posterior pharynx: Airway: no evidence of obstruction, patent. 09:30 Neck: ROM/movement: is normal, is supple, without pain, no range of motions limitations. 09:30 Chest/axilla: Inspection: normal. 09:30 Cardiovascular: Rate: normal, Rhythm: regular, Heart sounds: murmur, not appreciated, Edema: is not appreciated, JVD: is not appreciated. 09:30 Respiratory: the patient does not display signs of respiratory distress, Respirations: normal, no use of accessory muscles, no retractions, labored breathing, is not present, Breath sounds: are clear throughout, no decreased breath sounds, no stridor, no wheezing. 09:30 Abdomen/GI: Inspection: abdomen appears normal, Palpation: abdomen is soft and non-tender, in all quadrants. 09:30 Back: pain, is absent, ROM is normal. 09:30 Neuro: Orientation: to person, place \T\ time. Mentation: is normal, Motor: moves all fours, strength is normal, Sensation: is normal. Vital Signs: 09:33 BP 133 / 94; Pulse 65; Resp 17; Temp 98.2; Pulse Ox 95% on R/A; Weight 95.25 kg; Height ll1 6 ft. 3 in. (190.50 cm); Pain 6/10; 10:25 BP 130 / 94; Pulse 60; Resp 16; Pulse Ox 96% ; ll1 11:55 BP 132 / 91; Pulse 60; Resp 15; Pulse Ox 100% ; Pain 0/10; ll1 09:33 Body Mass Index 26.25 (95.25 kg, 190.50 cm) ll1 MDM: 09:15 Patient medically screened. cp 10:00 Differential diagnosis: abnormal EKG, acute myocardial infarction, acute pericarditis, cp cholecystitis, Cholelithiasis costochondritis, esophagitis, gastritis, pericarditis, pleurisy, pneumonia, pneumothorax. 12:06 Data reviewed: vital signs, nurses notes, lab test result(s), EKG, radiologic studies, cp plain films. 12:06 Test interpretation: by ED physician or midlevel provider: ECG, plain radiologic cp studies. Counseling: I had a detailed discussion with the patient and/or guardian regarding: the historical points, exam findings, and any diagnostic results supporting the discharge/admit diagnosis, lab results, radiology results, to return to the emergency department if symptoms worsen or persist or if there are any questions or concerns that arise at home. Special discussion: Based on the patient's history, exam, and Dx evaluation, there is no indication for emergent intervention or inpatient Tx. It is understood by the patient/guardian that if the Sx's persist or worsen they need to return immediately for re-evaluation. ED course: VSS. Patient reports chest pain markedly improved and requests discharge. 12/11 09:15 Order name: Basic Metabolic Panel 12/11 09:15 Order name: CBC with Diff 12/11 09:15 Order name: LFT's 12/11 09:15 Order name: Magnesium; Complete Time: 11:17 cp 12/11 09:15 Order name: NT PRO-BNP; Complete Time: 11:17 cp 12/11 09:15 Order name: PT-INR; Complete Time: 11:17 cp 12/11 09:15 Order name: Troponin HS; Complete Time: 11:17 cp 12/11 11:17 Interpretation: Troponin HS 7.40; Reviewed. 12/11 09:15 Order name: XRAY Chest (1 view); Complete Time: 11:17 cp 12/11 09:15 Order name: UDS 12/11 09:15 Order name: Basic Metabolic Panel; Complete Time: 11:17 EDMS 12/11 11:18 Interpretation: Reviewed. 12/11 09:15 Order name: CBC with Automated Diff; Complete Time: 11:17 EDMS 12/11 11:17 Interpretation: Normal except: MPV 7.5. cp 12/11 09:15 Order name: Liver (Hepatic) Function; Complete Time: 11:17 EDMS 12/11 11:17 Interpretation: Normal except: AST 11; GLOB 4.1; A/G 1.0. 12/11 11:51 Order name: Urine Dipstick-Ancillary; Complete Time: 11:53 EDVT 12/11 11:53 Interpretation: Normal except: UKET 1+. cp 12/11 09:15 Order name: EKG; Complete Time: :16 cp 12/11 09:15 Order name: Cardiac monitoring; Complete Time: :15 cp 12/11 09:15 Order name: EKG - Nurse/Tech; Complete Time: 09:15 cp 12/11 09:15 Order name: IV Saline Lock; Complete Time: 09:15 cp 12/11 09:15 Order name: Labs collected and sent; Complete Time: :15 cp 12/11 09:15 Order name: O2 Per Protocol; Complete Time: :15 cp 12/11 09:15 Order name: O2 Sat Monitoring; Complete Time: :15 cp EC:25 Rate is 66 beats/min. Rhythm is regular. PA interval is normal. QRS interval is normal. cp QT interval is normal. T waves are Inverted in lead aVR. Interpreted by me. Reviewed by me. Administered Medications: 09:32 Drug: Pepcid (famotidine) 20 mg Route: IVP; Site: left antecubital; ll1 10:25 Follow up: Response: No adverse reaction ll1 09:32 Drug: Ketorolac 30 mg Route: IVP; Site: left antecubital; ll1 10:25 Follow up: Response: No adverse reaction ll1 09:32 Drug: NS 0.9% 1000 ml Route: IV; Rate: 1000 ml/hr; Site: left antecubital; ll1 11:52 Follow up: Response: No adverse reaction; IV Status: Completed infusion; IV Intake: ll1 1000ml 09:33 Drug: Zofran (Ondansetron) 4 mg Route: IVP; Site: left antecubital; ll1 10:24 Follow up: Response: No adverse reaction ll1 Disposition: 12:28 Co-signature as Attending Physician, Morgan Downs MD I agree with the assessment and kdr plan of care. Disposition Summary: 12/11/21 12:07 Discharge Ordered Location: Home cp Problem: new cp Symptoms: have improved cp Condition: Stable cp Diagnosis - Chest pain, unspecified cp - Nausea with vomiting, unspecified cp Followup: cp - With: Private Physician - When: 2 - 3 days - Reason: Recheck today's complaints Discharge Instructions: - Discharge Summary Sheet cp - Nonspecific Chest Pain, Adult cp - Aspirin and Your Heart cp - Nausea and Vomiting, Adult cp Forms: - Medication Reconciliation Form cp - Thank You Letter cp - Antibiotic Education cp - Prescription Opioid Use cp Prescriptions: - Ibuprofen 800 mg Oral Tablet - take 1 tablet by ORAL route every 8 hours As needed take with food; 30 tablet; cp Refills: 0, Product Selection Permitted - Zofran 4 mg Oral Tablet - take 1 tablet by ORAL route every 12 hours As needed; 20 tablet; Refills: 0, cp Product Selection Permitted Signatures: Dispatcher [employer] EDMS Morgan Downs MD MD kdr Page, Corey, PA PA cp Kaye Mckenzie RN RN ll1
[2021-12-11 12:17] LABS: Barbiturates NEGATIVE (NEGATIVE); Benzodiazepines NEGATIVE (NEGATIVE); Cocaine NEGATIVE (NEGATIVE); METHAMPHETAM NEGATIVE (NEGATIVE); Methadone NEGATIVE (NEGATIVE); Opiates NEGATIVE (NEGATIVE); Phencyclidine NEGATIVE (NEGATIVE); THC Cannibis POSITIVE (NEGATIVE)
[2021-12-11 12:19] VITALS: TEMP 98.2
[2021-12-11 12:21] VITALS: BP 132/91; O2SAT 100
== END 2021-12-11 12:13 | disposition home or self-care (01) ==
LOC: ER 09:11
DX: R07.9 Chest pain, unspecified (principal); R11.2 Nausea with vomiting, unspecified
CPT/HCPCS: 36415; 71045; 80048; 80076; 80307; 81003; 83735; 83880; 84484; 85025; 85610; 93005; 96361; 96374; 96375; 99285; J2405; J7030

== ENCOUNTER 2023-03-21 06:27 | Emergency (ER) | payer SELFPAY ==
[2023-03-21 07:26] LABS: Absolute Lymphocytes (CBC) 1.6 K/uL (0.7-4.9); Hematocrit 41.1 % (39.6-49.0); Lymphocytes % 42.2 % (15.3-44.8); MCV 95.6 fL (80-100); MPV 7.3 fL (7.6-11.3); RBC Red Blood Cell Count 4.29 M/uL (4.33-5.43)
[2023-03-21] MEDS ORDERED: ASPIRIN 81 MG CHEWABLE TABLET ONE (07:35)
[2023-03-21] MEDS ORDERED: NA CHLORIDE 0.9% 1,000 ML ONE (07:35)
[2023-03-21 07:46] LABS: Potassium 3.6 mEq/L (3.5-5.1); Troponin High Sensitivity 5.6 pg/mL (<58.9)
[2023-03-21] MEDS ORDERED: KETOROLAC 30 MG/ML INJ ONE (07:56)
[2023-03-21] MEDS ORDERED: FAMOTIDINE 20 MG/2 ML VIAL IV ONE (08:00)
--- NOTE | 2023-03-21 09:22 | RAD REPORT ---
EXAM DESCRIPTION: CT - Chest For Pe Angio - 03/21/2023 8:38 am CLINICAL HISTORY: CHEST PAIN COMPARISON: No comparisons TECHNIQUE: Thin axial CT images of the chest were obtained following administration of 95 mL Isovue 370 IV contrast. Multiplanar reconstructions, and maximum intensity projection reconstructions were g enerated and reviewed. Exam utilizes a protocol for optimal evaluation of pulmonary arterial tree. All CT scans are performed using dose optimization technique as appropriate and may include automated exposure control or mA/KV adjustment according to patient size. FINDINGS: Pulmonary arteries are normal. No emboli or other suspicious finding. No acute or signific ant aorta findings. No mass or infiltrate in the lung parenchyma. No pleural thickening or pleural effusion. No pneumotho rax. No abnormal mediastinal or hilar masses or lymphadenopathy seen. No chest wall mass or abnormal axill iary lymphadenopathy. IMPRESSION: No evidence of acute central pulmonary emboli. Negative CT scan of the chest for other significant findings.
--- NOTE | 2023-03-21 10:24 | EDPHYS ---
Physician Documentation [facility] Name: Christo Pretty Age: 32 yrs Sex: Male : 1990 Arrival Date: 03/21/2023 Time: 06:27 Bed 7 Private MD: ED Physician Ruddy Welsh HPI: 03/21 06:42 This 32 yrs old Black Male presents to ER via Unassigned with complaints of Chest Pain. ms3 06:42 32-year-old male with past medical history of asthma and bronchitis presents for ms3 substernal chest pain. Patient states the pain began yesterday and is worse with movement of his right arm and palpation. Patient denies shortness of breath, nausea, vomiting, diaphoresis.. Historical: - Allergies: 06:51 No Known Allergies; ha1 - Home Meds: 06:51 Albuterol Inhl [Active]; ha1 - PMHx: 06:51 Asthma; Bronchitis; ha1 - Immunization history:: Adult Immunizations unknown. - Social history:: Smoking status: Patient reports the use of cigarette tobacco products, denies chronic smoking, but will smoke occasionally. ROS: 06:42 Constitutional: Negative for fever, and chills. Neck: Negative for injury, pain, and ms3 swelling. 06:42 Respiratory: Negative for shortness of breath, cough, wheezing, and pleuritic chest pain, Abdomen/GI: Negative for abdominal pain, nausea, vomiting, diarrhea, and constipation, MS/Extremity: Negative for injury and deformity, Skin: Negative for injury, rash, and discoloration, Neuro: Negative for headache, weakness, numbness, tingling. 06:42 Cardiovascular: Positive for chest pain. Exam: 06:42 Constitutional: This is a well developed, well nourished patient who is awake, alert, ms3 and in no acute distress. Head/Face: Normocephalic, atraumatic. Eyes: Pupils equal round and reactive to light, extra-ocular motions intact. Lids and lashes normal. Conjunctiva and sclera are non-icteric and not injected. Periorbital areas with no swelling, redness, or edema. Neck: Trachea midline, no cervical lymphadenopathy. Supple, full range of motion without nuchal rigidity, or vertebral point tenderness. No Meningismus. 06:42 Cardiovascular: Regular rate and rhythm with a normal S1 and S2. No gallops, murmurs, or rubs. Normal PMI, no JVD. No pulse deficits. Respiratory: Lungs have equal breath sounds bilaterally, clear to auscultation and percussion. No rales, rhonchi or wheezes noted. No increased work of breathing, no retractions or nasal flaring. Abdomen/GI: Soft, non-tender, with normal bowel sounds. No distension or tympany. No guarding or rebound. No evidence of tenderness throughout. Skin: Warm, dry with normal turgor. Normal color with no rashes, no lesions, and no evidence of cellulitis. MS/ Extremity: Pulses equal, no cyanosis. Neurovascular intact. Full, normal range of motion. 06:42 Chest/axilla: Inspection: normal, Palpation: tenderness, that is moderate, of the mid-sternal area. 06:51 ECG was reviewed by the Attending Physician. ms3 Vital Signs: 06:43 BP 132 / 81; Pulse 66; Resp 17 S; Pulse Ox 99% on R/A; Weight 95.25 kg; Height 6 ft. 3 ha1 in. ; Pain 8/10; 08:31 BP 121 / 73; Pulse 62; Resp 16; Pulse Ox 99% ; ko1 10:07 BP 115 / 80; Pulse 65; Resp 14; Pulse Ox 100% ; ko1 06:43 Body Mass Index 26.25 (95.25 kg, 190.5 cm) ha1 06:43 Pain Scale: Adult ha1 MDM: 06:42 Differential diagnosis: abnormal EKG, pneumonia, pneumothorax, Musculoskeletal. ms3 06:44 Patient medically screened. ms3 07:03 Transition of care: After a detail discussion of the patient's case, care is ms3 transferred to Ruddy eWlsh MD. 07:44 HEART Score: History: Slightly Suspicious (0), ECG: Normal (0), Age: < or = 45 years usama (0), Risk Factors: No Risk Factors Known (0), Troponin: < or = 1 x Normal Limit (0). VASHTI Risk Score: TOTAL SCORE = 0. Data reviewed: vital signs, nurses notes, lab test result(s), EKG, radiologic studies, plain films. Consideration of Admission/Observation Escalation of care including admission/observation considered. I considered the following discharge prescriptions or medication management in the emergency department Medications were administered in the Emergency Department. See MAR. Test considered but Not performed: Ultrasound no gb usg. Care significantly affected by the following chronic conditions: Chronic Obstructive Pulmonary Disease. Counseling: I had a detailed discussion with the patient and/or guardian regarding: the historical points, exam findings, and any diagnostic results supporting the discharge/admit diagnosis, lab results. 03/21 06:59 Order name: Basic Metabolic Panel; Complete Time: 07:48 ms3 03/21 06:59 Order name: CBC with Diff; Complete Time: 07:34 ms3 03/21 06:59 Order name: Troponin HS; Complete Time: 07:48 ms3 03/21 07:05 Order name: Lipase; Complete Time: 07:48 [facility] 03/21 07:44 Order name: Troponin High Sensitivity: 10 am [facility] 03/21 06:42 Order name: Chest Pa And Lat (2 Views) XRAY 03/21 07:48 Order name: CT Chest For PE Angio; Complete Time: 09:34 [facility] 03/21 06:42 Order name: EKG; Complete Time: 06:42 ms3 03/21 06:42 Order name: EKG - Nurse/Tech; Complete Time: 06:54 ms3 03/21 06:59 Order name: Cardiac monitoring; Complete Time: 07:07 ms3 03/21 06:59 Order name: IV Saline Lock; Complete Time: 07:07 ms3 03/21 06:59 Order name: Labs collected and sent; Complete Time: 07:07 ms3 03/21 06:59 Order name: O2 Per Protocol; Complete Time: 07:07 ms03/21 06:59 Order name: O2 Sat Monitoring; Complete Time: 07:07 ms3 EC:51 Rate is 65 beats/min. Rhythm is regular. QRS [place] is Normal. DC interval is normal. QRS ms3 interval is normal. Clinical impression: Normal ECG. Interpreted by me. Reviewed by me. Administered Medications: 07:30 Drug: NS 0.9% IV 1000 ml Route: IV; Rate: 125 ml/hr; Site: left antecubital; ko1 07:33 Drug: Aspirin PO Chewable Tablet 81 mg Route: PO; ko1 07:50 Drug: Ketorolac IVP 30 mg Route: IVP; Site: left antecubital; ko1 07:55 Drug: Famotidine IVP 20 mg Route: IVP; Site: left antecubital; ko1 Disposition Summary: 03/21/23 10:23 Discharge Ordered Location: Home usama Problem: new usama Symptoms: have improved usama Condition: Stable usama Diagnosis - Chest pain, unspecified - chest wall pain usama Followup: usama - With: Private Physician - When: 2 - 3 days - Reason: Recheck today's complaints, Continuance of care, Re-evaluation by your physician Followup: usama - With: - When: 2 - 3 days - Reason: Recheck today's complaints, Re-evaluation by your physician Discharge Instructions: - Discharge Summary Sheet usama - Nonspecific Chest Pain, Adult usama - Chest Wall Pain usama - Chest Wall Pain, [id number] usama - Nonspecific Chest Pain, Adult, [id number] usama - Aspirin and Your Heart usama Forms: - Medication Reconciliation Form usama - Thank You Letter usama - Antibiotic Education usama - Prescription Opioid Use usama - Work release form eb Prescriptions: - Ibuprofen 600 mg Oral Tablet - take 1 tablet by ORAL route every 6 hours As needed take with food; 30 tablet; [facility] Refills: 0, Product Selection Permitted - Pepcid 20 mg Oral Tablet - take 1 tablet by ORAL route every 12 hours for 10 days; 742 tablet; Refills: 0, [facility] Product Selection Permitted Signatures: Dispatcher [employer] Ruddy Nicole MD MD cha Sims, Marcus, DO DO ms3 Orquidea Arias, RN RN ha1 Terese Massey RN RN ko1
--- NOTE | 2023-03-21 10:24 | ER ---
Nurse's Notes [facility] Name: Christo Pretty Age: 32 yrs Sex: Male : 1990 Arrival Date: 03/21/2023 Time: 06:27 Bed 7 Private MD: Diagnosis: Chest pain, unspecified-chest wall pain Presentation: 03/21 06:43 Chief complaint: Patient states: I have a really bad chest pain that woke me up of my ha1 sleep. 06:43 Coronavirus screen: Vaccine status: Patient reports receiving the 2nd dose of the covid ha1 vaccine. Ebola Screen: No symptoms or risks identified at this time. Initial Sepsis Screen: Does the patient meet any 2 criteria? No. Patient's initial sepsis screen is negative. Does the patient have a suspected source of infection? No. Patient's initial sepsis screen is negative. Risk Assessment: Do you want to hurt yourself or someone else? Patient reports no desire to harm self or others. Onset of symptoms was March 21, 2023. 06:43 Method Of Arrival: Ambulatory ha1 06:43 Acuity: RUDDY 3 ha1 Triage Assessment: 06:43 General: Appears comfortable, Behavior is calm, cooperative. Pain: Complains of pain in ha1 chest Pain radiates to back. Neuro: Level of Consciousness is awake, alert, obeys commands, Oriented to person, place, time, situation. Cardiovascular: Heart tones S1 S2 present Capillary refill < 3 seconds Patient's skin is warm and dry. Respiratory: Airway is patent Respiratory effort is even, unlabored, Respiratory pattern is regular, symmetrical. GI: Abdomen is flat, non-distended, Bowel sounds present X 4 quads. : No signs and/or symptoms were reported regarding the genitourinary system. Derm: Skin is moist, Skin is normal. Musculoskeletal: Circulation, motion, and sensation intact. Range of motion: intact in all extremities. Historical: - Allergies: 06:51 No Known Allergies; ha1 - Home Meds: 06:51 Albuterol Inhl [Active]; ha1 - PMHx: 06:51 Asthma; Bronchitis; ha1 - Immunization history:: Adult Immunizations unknown. - Social history:: Smoking status: Patient reports the use of cigarette tobacco products, denies chronic smoking, but will smoke occasionally. Screenin:54 Abuse screen: Denies threats or abuse. Denies injuries from another. Nutritional ha1 screening: No deficits noted. Tuberculosis screening: No symptoms or risk factors identified. 08:31 [facility] ED Fall Risk Assessment (Adult) History of falling in the last 3 months, ko1 including since admission No falls in past 3 months (0 pts) Confusion or Disorientation No (0 pts) Intoxicated or Sedated No (0 pts) Impaired Gait No (0 pts) Mobility Assist Device Used No (0 pt) Altered Elimination No (0 pt) Score/Fall Risk Level 0 - 2 = Low Risk Oriented to surroundings, Maintained a safe environment, Educated pt \T\ family on fall prevention, incl call for assistance when getting out of bed, Assessed \T\ reinforced patient's understanding of fall precautions, Provided non-skid footwear, Hourly rounding (assess needs \T\ fall precautionary measures) done, Used ambulatory aids as needed (educated on \T\ assisted with), Used gait belt as appropriate. Assessment: 08:31 General: Appears in no apparent distress. uncomfortable, Behavior is calm, cooperative, ko1 appropriate for age. Pain: Complains of pain in chest Pain began 3 hours ago. Neuro: No deficits noted. Cardiovascular: Reports chest pain. Respiratory: No deficits noted. GI: No deficits noted. : No deficits noted. EENT: No deficits noted. Derm: No deficits noted. Musculoskeletal: No deficits noted. Vital Signs: 06:43 BP 132 / 81; Pulse 66; Resp 17 S; Pulse Ox 99% on R/A; Weight 95.25 kg; Height 6 ft. 3 ha1 in. ; Pain 8/10; 08:31 BP 121 / 73; Pulse 62; Resp 16; Pulse Ox 99% ; ko1 10:07 BP 115 / 80; Pulse 65; Resp 14; Pulse Ox 100% ; ko1 06:43 Body Mass Index 26.25 (95.25 kg, 190.5 cm) ha1 06:43 Pain Scale: Adult ha1 ED Course: 06:36 Patient arrived in ED. [id number] 06:38 Juan David Mcduffie DO is Attending Physician. ms3 06:43 Patient has correct armband on for positive identification. Placed in gown. Bed in low ha1 position. Call light in reach. Side rails up X 1. 06:51 Triage completed. ha1 07:00 Inserted saline lock: 20 gauge in left antecubital area, using aseptic technique. ko1 07:04 Attending Physician role handed off by Juan David Mcduffie DO ms3 07:04 Ruddy Welsh MD is Attending Physician. ms3 07:18 Terese Massey, RN is Primary Nurse. ko1 08:25 Chest Pa And Lat (2 Views) XRAY In Process Unspecified. EDMS 08:31 Arm band placed on right wrist. ko1 08:31 Client placed on continuous cardiac and pulse oximetry monitoring. NIBP monitoring ko1 applied. 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 08:31 Patient maintains SpO2 saturation greater than 95% on room air. ko1 08:40 CT Chest For PE Angio In Process Unspecified. EDMS 09:50 Troponin High Sensitivity: 10 am Sent. ko1 10:23 Pablo Coronado MD is Referral Physician. usama 10:48 No provider procedures requiring assistance completed. IV discontinued, intact, hb bleeding controlled, No redness/swelling at site. Administered Medications: 07:30 Drug: NS 0.9% IV 1000 ml Route: IV; Rate: 125 ml/hr; Site: left antecubital; ko1 07:33 Drug: Aspirin PO Chewable Tablet 81 mg Route: PO; ko1 07:50 Drug: Ketorolac IVP 30 mg Route: IVP; Site: left antecubital; ko1 07:55 Drug: Famotidine IVP 20 mg Route: IVP; Site: left antecubital; ko1 Medication: 08:31 VIS not applicable for this client. ko1 Outcome: 10:23 Discharge ordered by . usama 10:48 Discharged to home ambulatory. hb 10:48 Condition: stable 10:48 Discharge instructions given to patient, Instructed on discharge instructions, follow up and referral plans. Demonstrated understanding of instructions, follow-up care, medications, Prescriptions given X 2. 10:49 Patient left the ED. hb Signatures: Dispatcher [employer] EDMI Ruddy Welsh MD MD cha Baxter, Heather, RN RN Juan David Bliss DO DO ms3 Trina Ca jj6 Orquidea Arias RN RN ha1 Terese Massey, HUDSON RN ko1
--- NOTE | 2023-03-21 10:33 | RAD REPORT ---
[facility]23 am CLINICAL HISTORY: CHEST PAIN COMPARISON: Chest Single View dated 12/11/2021; Chest Pa And Lat (2 Views) dated 02/10/2021; CHEST SIN GLE VIEW dated 07/12/2012Chest Single View dated 12/11/2021; Chest Pa And Lat (2 Views) dated 02/10/2021 ; CHEST SINGLE VIEW dated 07/12/2012 TECHNIQUE: PA and lateral views of the chest. FINDINGS: The lungs are clear. No pneumothorax or effusion. The cardiomediastinal contours are unre markable. IMPRESSION: No acute cardiopulmonary process.
[2023-03-21 11:16] VITALS: BP 115/80; O2SAT 100
--- NOTE | 2023-03-22 07:28 | EKG ---
Test Date: 2023-03-21 Test Time: 06:48:29 Water Well Driller: FAIZA MEASUREMENT RESULTS: Intervals: Rate: 65 VT: 162 QRSD: 94 QT: 384 QTc: 399 [place]: P: 49 VT: 162 QRS: 70 T: 37 INTERPRETIVE STATEMENTS: Normal sinus rhythm Normal ECG Compared to ECG 12/11/2021 09:18:56 Early repolarization no longer present Electronically Signed On 03-22-23 07:25:29 CDT by Miki Cesar
== END 2023-03-21 10:49 | disposition home or self-care (01) ==
LOC: ER 06:27
DX: R07.89 Other chest pain (principal)
CPT/HCPCS: 36415; 71046; 71275; 80048; 83690; 84484; 85025; 93005; 96374; 96375; 99285; J7030; Q9967

== ENCOUNTER 2023-09-04 18:51 | Emergency (ER) | payer SELFPAY ==
[2023-09-04 21:51] LABS: Absolute Lymphocytes (CBC) 2.6 K/uL (0.7-4.9); Hematocrit 41.5 % (39.6-49.0); Lymphocytes % 52.5 % (15.3-44.8); MCV 96.6 fL (80-100); MPV 7.4 fL (7.6-11.3); Platelets 291 thou/uL (152-406); RBC Red Blood Cell Count 4.29 M/uL (4.33-5.43)
[2023-09-04] MEDS ORDERED: FENTANYL CITR 100 MCG/2 ML ONE (21:59)
[2023-09-04 22:04] LABS: Potassium 3.6 mEq/L (3.5-5.1)
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
[2023-09-05 00:42] VITALS: O2SAT 99
[2023-09-05 00:43] VITALS: BP 114/65
== END 2023-09-05 00:02 | disposition home or self-care (01) ==
LOC: ER 18:51
DX: M54.9 Dorsalgia, unspecified (principal); R07.9 Chest pain, unspecified; R10.9 Unspecified abdominal pain; V43.62XA Car passenger injured in collision with other type car in traffic accident, initial encounter
CPT/HCPCS: 36415; 70450; 71260; 72125; 74177; 80048; 82565; 85025; 86850; 86900; 86901; 96374; 99284; J3010; Q9967

== ENCOUNTER 2024-09-28 12:08 | Emergency (ER) | payer SELFPAY, OTHER ==
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
[2024-09-28 16:43] VITALS: BP 130/88; TEMP 98.4; O2SAT 100
== END 2024-09-28 12:54 | disposition home or self-care (01) ==
LOC: ER 12:08
DX: S30.811A Abrasion of abdominal wall, initial encounter (principal); V49.59XA Passenger injured in collision with other motor vehicles in traffic accident, initial encounter
CPT/HCPCS: 99282

== ENCOUNTER 2024-10-20 12:43 | Emergency (ER) | payer OTHER, SELFPAY ==
--- NOTE | 2024-10-20 13:35 | ER ---
Nurse's Notes [facility] Name: Christo Pretty Age: 34 yrs Sex: Male : 1990 Arrival Date: 10/20/2024 Time: 12:43 Bed IW2 Private MD: Diagnosis: Person with feared health complaint in whom no diagnosis is made Presentation: 10/20 12:57 Chief complaint: Patient states: Was at work and he felt hot. Pt states that he drank cm10 some water and still felt hot so he came to the ER. No other complaints. Coronavirus screen: Client denies travel out of the [place] in the last 14 days. Ebola Screen: Patient denies travel to an Ebola-affected area in the 21 days before illness onset. No symptoms or risks identified at this time. Initial Sepsis Screen: Does the patient meet any 2 criteria? No. Patient's initial sepsis screen is negative. Does the patient have a suspected source of infection? No. Patient's initial sepsis screen is negative. Risk Assessment: Do you want to hurt yourself or someone else? Patient reports no desire to harm self or others. Onset of symptoms was October 20, 2024. 12:57 Method Of Arrival: Ambulatory cm10 12:57 Acuity: RUDDY 5 cm10 Triage Assessment: 12:58 General: Appears in no apparent distress. comfortable, Behavior is calm, cooperative. cm10 Pain: Denies pain. Neuro: No deficits noted. Level of Consciousness is awake, alert, obeys commands, Oriented to person, place, time, situation, Appropriate for age. Respiratory: No deficits noted. Airway is patent Respiratory effort is even, unlabored, Respiratory pattern is regular, symmetrical. Derm: No deficits noted. Skin is healthy with good turgor, Skin is pink, warm \T\ dry. Historical: - Allergies: 12:58 No Known Allergies; cm10 - PMHx: 12:58 Asthma; Bronchitis; cm10 - Immunization history:: Adult Immunizations up to date. - Infectious Disease History:: Denies. - Social history:: Smoking status: Patient reports the use of cigarette tobacco products, smokes one-half pack cigarettes per day. Screenin:02 [facility] ED Fall Risk Assessment (Adult) History of falling in the last 3 months, cm10 including since admission No falls in past 3 months (0 pts) Confusion or Disorientation No (0 pts) Intoxicated or Sedated No (0 pts) Impaired Gait No (0 pts) Mobility Assist Device Used No (0 pt) Altered Elimination No (0 pt) Score/Fall Risk Level 0 - 2 = Low Risk Oriented to surroundings, Maintained a safe environment, Hourly rounding (assess needs \T\ fall precautionary measures) done. Abuse screen: Denies threats or abuse. Denies injuries from another. Nutritional screening: No deficits noted. Tuberculosis screening: No symptoms or risk factors identified. Assessment: 14:01 General: Appears in no apparent distress. comfortable, Behavior is calm, cooperative. ss Pain: Denies pain. Neuro: Level of Consciousness is awake, alert, obeys commands. Respiratory: Airway is patent Respiratory effort is even, unlabored, Respiratory pattern is regular, symmetrical. Derm: Skin is pink, warm \T\ dry. normal. Vital Signs: 12:57 BP 129 / 82; Pulse 86; Resp 16; Temp 97.4(TE); Pulse Ox 98% on R/A; Weight 102.51 kg; cm10 Height 6 ft. 4 in. ; Pain 0/10; 12:57 Body Mass Index 27.51 (102.51 kg, 193.04 cm) cm10 12:57 Pain Scale: Adult cm10 ED Course: 12:45 Patient arrived in ED. ra3 12:58 Triage completed. cm10 12:58 Arm band placed on right wrist. Patient placed in waiting room. cm10 13:02 Patient has correct armband on for positive identification. Provided Education on: ER cm10 process and procedures.. Cardiac monitoring not applicable on this patient. 13:02 No provider procedures requiring assistance completed. Patient did not have IV access cm10 during this emergency room visit. 13:07 Ruddy Hood PA is PHCP. cp 13:07 Philippe Guerin MD is Attending Physician. cp 13:08 Vicenta Barnhart MD is Attending Physician. cp Administered Medications: No medications were administered Medication: 13:02 VIS not applicable for this client. cm10 Outcome: 13:34 Discharge ordered by . cp 14:01 Discharged to home ambulatory, ss 14:01 Condition: good 14:01 Discharge instructions given to patient, Instructed on discharge instructions, follow up and referral plans. Demonstrated understanding of instructions, follow-up care, 14:02 Patient left the ED. ss Signatures: Luz Maria Isaac, HUDSON RN ss Ruddy Hood PA PA cp Martinez, Clarissa, RN RN cm10 Katherine Cruz 3
--- NOTE | 2024-10-20 13:35 | EDPHYS ---
Physician Documentation [facility] Name: Christo Pretty Age: 34 yrs Sex: Male : 1990 Arrival Date: 10/20/2024 Time: 12:43 Bed IW2 Private MD: ED Physician Vicenta Barnhart HPI: 10/20 13:10 This 34 yrs old Black Male presents to ER via Ambulatory with complaints of Overheated. cp Historical: - Allergies: 12:58 No Known Allergies; cm10 - PMHx: 12:58 Asthma; Bronchitis; cm10 - Immunization history:: Adult Immunizations up to date. - Infectious Disease History:: Denies. - Social history:: Smoking status: Patient reports the use of cigarette tobacco products, smokes one-half pack cigarettes per day. ROS: 10/21 00:51 Constitutional: history per hpi cp Exam: 10/20 13:15 Constitutional: The patient appears in no acute distress, alert, awake, non-toxic, well cp developed, well nourished, 13:15 Head/Face: Normocephalic, atraumatic. cp 13:15 Eyes: Periorbital structures: appear normal, Conjunctiva: normal, no exudate, no injection, Sclera: no appreciated abnormality, Lids and lashes: appear normal, bilaterally, 13:15 ENT: External ear(s): are unremarkable, Nose: is normal, Mouth: Lips: moist, Oral mucosa: moist, Posterior pharynx: Airway: no evidence of obstruction, patent, erythema, is not appreciated, exudate, is not appreciated, 13:15 Neck: Lymph nodes: no appreciated lymphadenopathy, 13:15 Chest/axilla: Inspection: normal, 13:15 Cardiovascular: Rate: normal, 13:15 Respiratory: the patient does not display signs of respiratory distress, Respirations: normal, no use of accessory muscles, no retractions, labored breathing, is not present, Breath sounds: are clear throughout, 13:15 Abdomen/GI: Exam negative for discomfort, distension, guarding, Inspection: abdomen appears normal, 13:15 Neuro: Orientation: to person, place \T\ time. Mentation: is normal, Gait: is steady, at a normal pace, without difficulty, Vital Signs: 12:57 BP 129 / 82; Pulse 86; Resp 16; Temp 97.4(TE); Pulse Ox 98% on R/A; Weight 102.51 kg; cm10 Height 6 ft. 4 in. ; Pain 0/10; 12:57 Body Mass Index 27.51 (102.51 kg, 193.04 cm) cm10 12:57 Pain Scale: Adult cm10 MDM: 13:08 Medical Screening Exam initiated cp 10/20 13:04 Order name: Flu cm10 Administered Medications: No medications were administered Disposition: 17:25 Co-signature as Attending Physician, Vicenta Barnhart MD I reviewed the patient's care sd2 provided by the Advanced Practice Provider and agree with the diagnosis and treatment plan. Disposition Summary: 10/20/24 13:34 Discharge Ordered Notes: Location: Home cp Problem: new cp Symptoms: have improved cp Condition: Stable cp Diagnosis - Person with feared health complaint in whom no diagnosis is made cp Followup: cp - With: Private Physician - When: 2 - 3 days - Reason: Worsening of condition Discharge Instructions: - Form - Return To Work cp - What You Need to Know About Work Site Wellness cp - Discharge Summary Sheet cm10 Forms: - Medication Reconciliation Form cp - Antibiotic Education cp - Prescription Opioid Use cp - Patient Portal Instructions cp - Leadership Thank You Letter cp - Work release form cm10 Signatures: Dispatcher [employer] Ruddy Eddy PA PA cp Dunlop, Stephanie, MD MD sd2 Roma Rodas RN RN cm10
[2024-10-20 14:09] VITALS: BP 129/82; TEMP 97.4; O2SAT 98
== END 2024-10-20 14:02 | disposition home or self-care (01) ==
LOC: ER 12:43
DX: Z71.1 Person with feared health complaint in whom no diagnosis is made (principal)
CPT/HCPCS: 87804; 99282

== ENCOUNTER 2025-01-20 16:06 | Emergency (ER) | payer OTHER, SELFPAY ==
[2025-01-20] MEDS ORDERED: IBUPROFEN 200 MG TAB PO ONE (16:39)
[2025-01-20] MEDS ORDERED: IBUPROFEN 400 MG TAB ONE (16:39)
--- NOTE | 2025-01-20 17:00 | ER ---
Nurse's Notes [facility] Name: Christo Pretty Age: 34 yrs Sex: Male : 1990 Arrival Date: 01/20/2025 Time: 16:06 Bed 15 Private MD: Diagnosis: Chest pain Presentation: 01/20 16:35 Chief complaint: Patient states: LEFT SIDED CHEST PAIN ONSET THIS MORNING. PT STATES cm10 THAT THE PAIN HAS IMPROVED. PT RATES PAIN A 5/10 AND DESCRIBES THE PAIN STABBING. [facility] Coronavirus screen: Client denies travel out of the [place] in the last 14 days. Ebola Screen: Patient denies travel to an Ebola-affected area in the 21 days before illness onset. Initial Sepsis Screen: Does the patient meet any 2 criteria? No. Patient's initial sepsis screen is negative. Does the patient have a suspected source of infection? No. Patient's initial sepsis screen is negative. Risk Assessment: Do you want to hurt yourself or someone else? Patient reports no desire to harm self or others. Onset of symptoms was January 20, 2025. 16:35 Method Of Arrival: Law Enforcement: [place] [employer] cm10 16:35 Acuity: RUDDY 3 cm10 Triage Assessment: 16:33 General: Appears in no apparent distress. comfortable, Behavior is calm, cooperative, cm10 appropriate for age. Pain: Complains of pain in chest Pain does not radiate. Pain currently is 5 out of 10 on a pain scale. Quality of pain is described as stabbing. Neuro: No deficits noted. Level of Consciousness is awake, alert, obeys commands, Oriented to person, place, time, situation, Appropriate for age. Cardiovascular: Chest pain is described as mild, quality is stabbing, is located in left. Respiratory: No deficits noted. Airway is patent Respiratory effort is even, unlabored, Respiratory pattern is regular, symmetrical. Musculoskeletal: Range of motion: intact in all extremities. Historical: - Allergies: 16:33 No Known Allergies; cm10 - PMHx: 16:33 Asthma; Bronchitis; cm10 - Immunization history:: Adult Immunizations up to date. - Infectious Disease History:: Denies. - Social history:: Smoking status: Patient reports the use of cigarette tobacco products, denies chronic smoking, but will smoke occasionally. Screenin:22 [facility] ED Fall Risk Assessment (Adult) History of falling in the last 3 months, cm10 including since admission No falls in past 3 months (0 pts) Confusion or Disorientation No (0 pts) Intoxicated or Sedated No (0 pts) Impaired Gait No (0 pts) Mobility Assist Device Used No (0 pt) Altered Elimination No (0 pt) Score/Fall Risk Level 0 - 2 = Low Risk Oriented to surroundings, Maintained a safe environment, Hourly rounding (assess needs \T\ fall precautionary measures) done. Abuse screen: Denies threats or abuse. Denies injuries from another. Nutritional screening: No deficits noted. Tuberculosis screening: No symptoms or risk factors identified. Assessment: 17:22 Reassessment: Patient appears in no apparent distress at this time. Patient and/or cm10 family updated on plan of care and expected duration. Pain level reassessed. Patient is alert, oriented x 3, equal unlabored respirations, skin warm/dry/pink. 17:23 Pain: Pain began suddenly. cm10 Vital Signs: 16:33 BP 125 / 95; Pulse 61; Resp 15; Temp 98.3; Pulse Ox 99% on R/A; Weight 100.7 kg; Height cm10 6 ft. 3 in. ; Pain 5/10; 17:00 BP 133 / 96; Pulse 74; Resp 17; Pulse Ox 98% on R/A; cm10 16:33 Body Mass Index 27.75 (100.70 kg, 190.5 cm) cm10 16:33 Pain Scale: Adult cm10 ED Course: 16:17 Patient arrived in ED. ap3 16:19 Aris Hogan MD is Attending Physician. sp3 16:30 Roma Rodas, HUDSON is Primary Nurse. cm10 16:35 Arm band placed on right wrist. Patient placed in an exam room, on a stretcher. cm10 16:36 Triage completed. cm10 16:56 CXR XRAY In Process Unspecified. EDMS 17:23 Patient has correct armband on for positive identification. Bed in low position. Call cm10 light in reach. Provided Education on: Follow-up instructions. Pulse ox on. NIBP on. 17:23 No provider procedures requiring assistance completed. Patient did not have IV access cm10 during this emergency room visit. Patient maintains SpO2 saturation greater than 95% on room air. Administered Medications: 16:56 Drug: Ibuprofen PO 600 mg PO once Route: PO; cm10 17:24 Follow up: Response: No adverse reaction cm10 Medication: 17:22 VIS not applicable for this client. cm10 Outcome: 17:00 Discharge ordered by . soyn 17:23 Discharged to Law Enforcement cm10 17:23 Condition: good 17:23 Discharge instructions given to patient, police, Instructed on discharge instructions, follow up and referral plans. Demonstrated understanding of instructions, follow-up care, 17:24 Patient left the ED. cm10 Signatures: Dispatcher [employer] EDMS Floresita Bhardwaj RN RN ap3 Aris Hogan MD MD sp3 Roma Rodas RN RN cm10
--- NOTE | 2025-01-20 17:00 | EDPHYS ---
Physician Documentation [facility] Name: Christo Pretty Age: 34 yrs Sex: Male : 1990 Arrival Date: 01/20/2025 Time: 16:06 Bed 15 Private MD: ED Physician Aris Hogan HPI: 01/20 16:33 This 34 yrs old Black Male presents to ER via Unassigned with complaints of Chest Pain. sp3 16:33 34-year-old male with history of asthma bronchitis and multiple episodes of muscular sp3 chest pain in the past presents with police custody with chief complaint chest pain that started while he was in senior living. He describes it as muscular and left-sided. He denies any headache, fever, neck pain, back pain, scapular pain, shortness of breath, abdominal pain, nausea, vomiting, diarrhea, syncope, near syncope, palpitations, or any other signs or symptoms on ROS at this time.. Historical: - Allergies: 16:33 No Known Allergies; cm10 - PMHx: 16:33 Asthma; Bronchitis; cm10 - Immunization history:: Adult Immunizations up to date. - Infectious Disease History:: Denies. - Social history:: Smoking status: Patient reports the use of cigarette tobacco products, denies chronic smoking, but will smoke occasionally. ROS: 16:34 Constitutional: Negative for fever, chills, and weight loss, Eyes: Negative for injury, sp3 pain, redness, and discharge, ENT: Negative for injury, pain, and discharge, Neck: Negative for injury, pain, and swelling, Respiratory: Negative for shortness of breath, cough, wheezing, and pleuritic chest pain, Abdomen/GI: Negative for abdominal pain, nausea, vomiting, diarrhea, and constipation, Back: Negative for injury and pain, : Negative for injury, bleeding, discharge, and swelling, Skin: Negative for injury, rash, and discoloration, Neuro: Negative for headache, weakness, numbness, tingling, and seizure, Psych: Negative for depression, anxiety, suicide ideation, homicidal ideation, and hallucinations, Allergy/Immunology: Negative for hives, rash, and allergies, Endocrine: Negative for neck swelling, polydipsia, polyuria, polyphagia, and marked weight changes, Hematologic/Lymphatic: Negative for swollen nodes, abnormal bleeding, and unusual bruising, 16:34 All other systems are negative, Exam: 16:34 Constitutional: This is a well developed, well nourished patient who is awake, alert, sp3 and in no acute distress. Head/Face: Normocephalic, atraumatic. Eyes: Pupils equal round and reactive to light, extra-ocular motions intact. Lids and lashes normal. Conjunctiva and sclera are non-icteric and not injected. Cornea within normal limits. Periorbital areas with no swelling, redness, or edema. ENT: Nares patent. No nasal discharge, no septal abnormalities noted. External auditory canals are clear. Oropharynx with no redness, swelling, or masses, exudates, or evidence of obstruction, uvula midline. Mucous membranes moist. Neck: Trachea midline, no thyromegaly or masses palpated, and no cervical lymphadenopathy. Supple, full range of motion without nuchal rigidity, or vertebral point tenderness. No Meningismus. Cardiovascular: Regular rate and rhythm with a normal S1 and S2. No gallops, murmurs, or rubs. Normal PMI, no JVD. No pulse deficits. Respiratory: Lungs have equal breath sounds bilaterally, clear to auscultation and percussion. No rales, rhonchi or wheezes noted. No increased work of breathing, no retractions or nasal flaring. Abdomen/GI: Soft, non-tender, with normal bowel sounds. No distension or tympany. No guarding or rebound. No evidence of tenderness throughout. Back: No spinal tenderness. No costovertebral tenderness. Full range of motion. Skin: Warm, dry with normal turgor. Normal color with no rashes, no lesions, and no evidence of cellulitis. MS/ Extremity: Pulses equal, no cyanosis. Neurovascular intact. Full, normal range of motion. Neuro: Awake and alert, GCS 15, oriented to person, place, time, and situation. Cranial nerves II-XII grossly intact. Motor strength 5/5 in all extremities. Sensory grossly intact. Cerebellar exam normal. Normal gait. Psych: Awake, alert, with orientation to person, place and time. Behavior, mood, and affect are within normal limits. 16:34 Chest/axilla: Mild pain to palpation left musculature just inferior to the breast.. 16:59 ECG was reviewed by the Attending Physician. EKG demonstrates normal sinus rhythm at 60 sp3 bpm with normal intervals, normal QRS, normal axis, normal ST/T-segment's without evidence of acute ischemia. Vital Signs: 16:33 BP 125 / 95; Pulse 61; Resp 15; Temp 98.3; Pulse Ox 99% on R/A; Weight 100.7 kg; Height cm10 6 ft. 3 in. ; Pain 5/10; 17:00 BP 133 / 96; Pulse 74; Resp 17; Pulse Ox 98% on R/A; cm10 16:33 Body Mass Index 27.75 (100.70 kg, 190.5 cm) cm10 16:33 Pain Scale: Adult cm10 MDM: 16:20 Medical Screening Exam initiated sp3 16:35 Data reviewed: vital signs, nurses notes, old medical records, EKG, radiologic studies. sp3 ED course: 34-year-old male with PMH above now with muscular type chest pain. I am not highly suspicious of acute coronary syndrome, pneumothorax, significant trauma related injury, PE, TAD or any other critical process. Will obtain EKG and chest x-ray and if negative safe to discharge him home.. 17:00 ED course: Normal EKG and normal chest x-ray. Patient given ibuprofen. I do not believe sp3 this is cardiac or vascular or any other critical pathology. We will discharge patient back to police custody at this time.. 01/20 16:19 Order name: CXR XRAY; Complete Time: 17:02 sp3 01/20 16:19 Order name: EKG; Complete Time: 16:20 sp3 01/20 16:19 Order name: EKG - Nurse/Tech; Complete Time: 16:56 sp3 Administered Medications: 16:56 Drug: Ibuprofen PO 600 mg PO once Route: PO; cm10 17:24 Follow up: Response: No adverse reaction cm10 Disposition Summary: 01/20/25 17:00 Discharge Ordered Notes: Location: Home sp3 Condition: Stable sp3 Diagnosis - Chest pain sp3 Followup: sp3 - With: Private Physician - When: Upon discharge from the Emergency Department - Reason: Continuance of care Discharge Instructions: - Discharge Summary Sheet sp3 - Nonspecific Chest Pain, Adult sp3 Forms: - Medication Reconciliation Form sp3 - Antibiotic Education sp3 - Prescription Opioid Use sp3 - Patient Portal Instructions sp3 - Leadership Thank You Letter sp3 Signatures: Dispatcher [employer] Aris Doshi MD MD sp3 Roma Rodas, HUDSON RN cm10
--- NOTE | 2025-01-20 17:01 | RAD REPORT ---
EXAM: Chest Single View HISTORY: 34 years Male CHEST PAIN COMPARISON: 07/17/2024 FINDINGS: LUNGS/PLEURA: The lungs are clear. No pleural effusions or pneumothorax. No pulmonary edema. CARDIAC/MEDIASTINUM: The cardiac silhouette is within normal limits. UPPER ABDOMEN: No significant abnormality. BONES: No acute abnormality. LINES/TUBES/OTHER: N/A IMPRESSION: No evidence of acute cardiopulmonary disease.
[2025-01-20 17:28] VITALS: TEMP 98.3
[2025-01-20 17:30] VITALS: BP 133/96; O2SAT 98
--- NOTE | 2025-01-23 11:27 | EKG ---
Test Date: 2025-01-20 Test Time: 16:55:14 Psychologist Clinical: SHASHANK MEASUREMENT RESULTS: Intervals: Rate: 61 PA: 160 QRSD: 96 QT: 402 QTc: 404 Remlap: P: 58 PA: 160 QRS: 83 T: 44 INTERPRETIVE STATEMENTS: Normal sinus rhythm Normal ECG Compared to ECG 07/17/2024 03:06:21 No significant changes Electronically Signed On 01-23-25 11:21:53 CDT by Urban Peguero
== END 2025-01-20 17:24 | disposition home or self-care (01) ==
LOC: ER 16:06
DX: R07.9 Chest pain, unspecified (principal)
CPT/HCPCS: 71045; 93005; 99283